=== PATIENT | male | born 1955 | race African-American/Black ===

== ENCOUNTER 2017-08-06 00:44 | Inpatient (IN) | payer OTHER ==
[~2017-08-06] VITALS: Ht 170.2 cm; Wt 80.2 kg
[~2017-08-06 00:44] MED LIST: ASPI-556 PO; GLIP5TAB11 PO; METF500T6 PO; PIOG30TA10 PO
[2017-08-06 01:07] LABS: GLUCOSE,POINT OF CARE 154 MG/DL (70-110)
[2017-08-06 01:40] LABS: BASOPHILS % (AUTO) 1.3 % (0.0-2.0); EOSINOPHILS % (AUTO) 1.5 % (1.0-6.0); HEMOGLOBIN 11.5 g/dL (13.5-17.5); LYMPHOCYTES # (AUTO) 1.6 K/uL (1.0-4.8); LYMPHOCYTES % (AUTO) 19.9 % (22.0-44.0); MEAN CORPUSCULAR HEMOGLOBIN 31.7 pg (26.0-34.0); MEAN CORPUSCULAR HGB CONC 33.9 G/dL (31.0-37.0); MEAN CORPUSCULAR VOLUME 93 fL (80-100); MONOCYTES # (AUTO) 0.8 K/uL (0.1-1.0); MONOCYTES % (AUTO) 9.8 % (2.0-9.0); NEUTROPHILS # (AUTO) 5.4 K/uL (1.8-7.7); NEUTROPHILS % (AUTO) 67.5 % (40.0-70.0); PLATELET COUNT (AUTO) 177 K/uL (150-450); RED BLOOD CELL COUNT(AUTO) 3.64 MIL/uL (4.50-5.90); RED CELL DISTRIBUTION WIDTH 13.7 % (11.5-14.5)
[2017-08-06 01:50] LABS: ANION GAP 7 mmol/L (8-16); CALCIUM, TOTAL 8.4 mg/dL (8.8-10.5); CARBON DIOXIDE 28 mmol/L (22-29); CHLORIDE 104 mmol/L (98-107); CREATININE 1.45 mg/dL (0.60-1.30); GLOMERULAR FILTR. RATE CALC 60 mL/min (>60); GLUCOSE,RANDOM 157 mg/dL (70-110); POTASSIUM 3.7 mmol/L (3.5-5.1); SODIUM SERUM 139 mmol/L (136-145); UREA NITROGEN, BLOOD 18 mg/dL (7-18)
[2017-08-06 01:51] LABS: PROTHROMBIN TIME 10.2 SEC (9.4-11.6)
[2017-08-06 01:57] LABS: SALICYLATE < 2.8 mg/dL (2.8-20.0)
[2017-08-06 01:58] LABS: AMMONIA < 10 umol/L (11-32); TROPONIN I < 0.02 ng/mL (0.00-0.05)
[2017-08-06 02:16] LABS: ACETAMINOPHEN < 2 mcg/mL (10-30); ALANINE AMINOTRANSFERASE 16 U/L (12-78); ALBUMIN 3.2 g/dL (3.4-5.0); ALKALINE PHOSPHATASE 88 U/L (46-116); ASPARTATE AMINOTRANSFERASE 14 U/L (15-37); BILIRUBIN,TOTAL 0.7 mg/dL (0.1-1.0); CREATINE KINASE MB 2.2 ng/mL (0-5); CREATINE KINASE, TOTAL 155 U/L (39-308); TOTAL PROTEIN, SERUM 7.2 g/dL (6.4-8.2)
[2017-08-06 02:42] LABS: APPEARANCE,URINE CLEAR (CLEAR); BILIRUBIN,URINE NEGATIVE (NEGATIVE); GLUCOSE, URINE (UA) 100 mg/dL (NEGATIVE); KETONES,URINE TRACE mg/dL (NEGATIVE); LEUKOCYTE ESTERASE ,URINE NEGATIVE (NEGATIVE); NITRATE,URINE NEGATIVE (NEGATIVE); OCCULT BLOOD,URINE TRACE (NEGATIVE); PROTEIN,URINE SEE CONFIRM (NEGATIVE)
[2017-08-06 02:49] LABS: AMPHET/METH SCREEN,URINE NEGATIVE (NEGATIVE); BARBITURATE SCREEN, URINE NEGATIVE (NEGATIVE); BENZODIAZEPINES SCREEN,URINE POSITIVE (NEGATIVE); CANNABINOID SCREEN,URINE NEGATIVE (NEGATIVE); COCAINE SCREEN,URINE NEGATIVE (NEGATIVE); METHADONE SCREEN, URINE NEGATIVE (NEGATIVE); OPIATE SCREEN,URINE NEGATIVE (NEGATIVE); PHENCYCLIDINE SCREEN,URINE NEGATIVE (NEGATIVE)
[2017-08-06 02:51] LABS: BACTERIA,URINE None Seen /HPF (None Seen); SULFOSALICYLIC ACID,URINE 2+ (Negative); WBC,URINE None Seen /HPF (0-5)
[2017-08-06] MEDS ORDERED: ONDANSETRON HCL 4 MG/2 ML VIAL IVP PRN ×2 (03:30→10:00)
[2017-08-06] MEDS ORDERED: 0.9% SODIUM CHLORIDE 10 ML SYRINGE IVP PRN (03:30)
[2017-08-06] MEDS ORDERED: ACETAMINOPHEN 325 MG TABLET PO PRN ×2 (03:30→10:00)
[2017-08-06] MEDS ORDERED: ASPIRIN 325 MG TABLET PO ONE (03:45)
[2017-08-06 05:11] VITALS: BP 149/84
[2017-08-06] MEDS ORDERED: PNEUMOCOCCAL VACCINE POLYVALENT 0.5 ML VIAL [PPSV23] IM ONE (06:00)
[2017-08-06] MEDS ORDERED: LISI-622 PO (06:37)
[2017-08-06] MEDS ORDERED: LISI5TAB PO (06:37)
[2017-08-06] MEDS ORDERED: INSU100I26 SQ (06:37)
[2017-08-06 06:58] LABS: GLUCOMETER DEV NAME(LOC) 5S 2Q; GLUCOSE,POINT OF CARE 129 MG/DL (70-110)
[2017-08-06 07:36] VITALS: BP 148/65
[2017-08-06] MEDS ORDERED: MAGNESIUM HYDROXIDE SUSPENSION 30 ML UDCUP PO PRN (10:00)
[2017-08-06] MEDS ORDERED: MORPHINE SULFATE 4 MG/ML SYRINGE IVP PRN (10:00)
[2017-08-06] MEDS ORDERED: ZOLPIDEM TARTRATE 5 MG TABLET PO PRN (10:00)
[2017-08-06] MEDS ORDERED: HYDROCODONE/ACETAMINOPHEN 5-325 MG TABLET PO PRN (10:00)
[2017-08-06] MEDS ORDERED: DEXTROSE 50%-WATER 25 GM/50 ML SYRINGE IVP PRN (10:00)
[2017-08-06] MEDS ORDERED: BISACODYL 10 MG RECTAL RECTAL SUPPOSITORY PR PRN (10:00)
[2017-08-06] MEDS ORDERED: MAGNESIUM SULFATE 2 GM, MVI, ADULT NO.1 WITH VIT K 10 ML, THIAMINE HCL 100 MG, FOLIC AC... IV ONE ×5 (10:15)
[2017-08-06 11:59] VITALS: BP 142/83
[2017-08-06 15:28] VITALS: BP 139/79
[2017-08-06] MEDS: HEPARIN SODIUM,PORCINE 5,000 UNITS/ML VIAL SQ SCH (18:42)
[2017-08-06] MEDS: DOCUSATE SODIUM 100 MG CAPSULE PO SCH (20:07)
[2017-08-06 20:24] VITALS: BP 145/81
[2017-08-06 23:51] VITALS: BP 116/72
[2017-08-07] MEDS: HEPARIN SODIUM,PORCINE 5,000 UNITS/ML VIAL SQ SCH ×3 (00:36→15:50)
[2017-08-07 03:22] LABS: GLUCOMETER DEV NAME(LOC) 5S 1M; GLUCOSE,POINT OF CARE 109 MG/DL (70-110)
[2017-08-07 03:22] LABS: GLUCOMETER DEV NAME(LOC) 5S 1M; GLUCOSE,POINT OF CARE 117 MG/DL (70-110)
[2017-08-07 03:23] LABS: GLUCOMETER DEV NAME(LOC) 5S 1M; GLUCOSE,POINT OF CARE 91 MG/DL (70-110)
[2017-08-07 04:48] VITALS: BP 137/92
[2017-08-07 07:36] VITALS: BP 123/67
[2017-08-07] MEDS: PANTOPRAZOLE SODIUM 40 MG DR TABLET PO SCH (08:28)
[2017-08-07] MEDS: ASPIRIN 81 MG EC TABLET PO SCH (08:28)
[2017-08-07] MEDS: LISINOPRIL 5 MG TABLET PO SCH (08:28)
[2017-08-07] MEDS: DOCUSATE SODIUM 100 MG CAPSULE PO SCH ×2 (08:28→21:23)
[2017-08-07 09:08] LABS: GLUCOMETER DEV NAME(LOC) 5S 1M; GLUCOSE,POINT OF CARE 91 MG/DL (70-110)
[2017-08-07 11:07] VITALS: BP 129/75
[2017-08-07] MEDS: INSULIN LISPRO 100 UNITS/ML SQ PRN ×3 (12:00→21:34)
[2017-08-07 12:07] LABS: GLUCOMETER DEV NAME(LOC) 5S 2Q; GLUCOSE,POINT OF CARE 189 MG/DL (70-110)
[2017-08-07 14:42] VITALS: BP 107/71
[2017-08-07 19:28] VITALS: BP 125/63
[2017-08-07 23:38] VITALS: BP 138/77
[2017-08-08] MEDS: HEPARIN SODIUM,PORCINE 5,000 UNITS/ML VIAL SQ SCH ×2 (00:21→09:02)
[2017-08-08 04:59] VITALS: BP 141/94
[2017-08-08] MEDS: INSULIN LISPRO 100 UNITS/ML SQ PRN ×2 (05:57→12:02)
[2017-08-08 06:58] LABS: GLUCOMETER DEV NAME(LOC) 5S 2Q; GLUCOSE,POINT OF CARE 237 MG/DL (70-110)
[2017-08-08 07:40] VITALS: BP 124/81
[2017-08-08] MEDS: DOCUSATE SODIUM 100 MG CAPSULE PO SCH (09:00)
[2017-08-08] MEDS: ASPIRIN 81 MG EC TABLET PO SCH (09:02)
[2017-08-08] MEDS: LISINOPRIL 5 MG TABLET PO SCH (09:02)
[2017-08-08] MEDS: PANTOPRAZOLE SODIUM 40 MG DR TABLET PO SCH (09:02)
[2017-08-08 11:43] VITALS: BP 152/89
[2017-08-08 16:10] VITALS: BP 147/89
[2017-08-09 13:23] LABS: GLUCOMETER DEV NAME(LOC) 5S 2Q; GLUCOSE,POINT OF CARE 237 MG/DL (70-110)
[2017-08-10 20:39] LABS: GLUCOMETER DEV NAME(LOC) 5S 1M; GLUCOSE,POINT OF CARE 256 MG/DL (70-110)
[2017-08-10 20:39] LABS: GLUCOMETER DEV NAME(LOC) 5S 1M; GLUCOSE,POINT OF CARE 205 MG/DL (70-110)
== END 2017-08-08 17:20 | disposition home or self-care (01) | DRG 52 ==
LOC: EMS 00:45 → 5S 03:41
PROVIDERS: ADMIT Internal Medicine; ATTEND Internal Medicine
DX: G93.40 Encephalopathy, unspecified (principal); N17.9 Acute kidney failure, unspecified; E11.22 Type 2 diabetes mellitus with diabetic chronic kidney disease; I12.9 Hypertensive chronic kidney disease with stage 1 through stage 4 chronic kidney disease, or unspecified chronic kidney disease; F23 Brief psychotic disorder; R26.2 Difficulty in walking, not elsewhere classified; D64.9 Anemia, unspecified; N18.9 Chronic kidney disease, unspecified; Z28.21 Immunization not carried out because of patient refusal; Z79.84 Long term (current) use of oral hypoglycemic drugs; Z79.82 Long term (current) use of aspirin
CPT/HCPCS: 51702; 70450; 70551; 76700; 87040; 93005; 97161; 97165; 99285; G0480; G0481; J1644; J3411; J3475; J3490; J7030

== ENCOUNTER 2023-10-16 13:42 | Emergency (ER) | payer OTHER ==
[~2023-10-16] VITALS: Ht 167.6 cm; Wt 76.4 kg
[~2023-10-16 13:42] MED LIST changes: -GLIP5TAB11 PO; +GLIP5TAB15 PO; +INSU100I26 SQ; +LISI5TAB PO; +METF-1211 PO; -METF500T6 PO; -PIOG30TA10 PO
[2023-10-16 13:51] VITALS: TEMP 98.4
[2023-10-16] MEDS ORDERED: LISI5TAB21 PO (13:54)
[2023-10-16] MEDS ORDERED: LISI10TA24 PO (13:54)
[2023-10-16] MEDS ORDERED: FLAS1KIT3 (13:54)
[2023-10-16] MEDS ORDERED: DULA1.5P SQ (13:54)
[2023-10-16] MEDS ORDERED: TAMS0.4C94 PO (13:54)
[2023-10-16] MEDS ORDERED: NEED-113 SQ (13:54)
[2023-10-16] MEDS ORDERED: EMPA1TAB17 PO (13:54)
[2023-10-16] MEDS: SODIUM CHLORIDE 0.9% 1,000 ML IV ONE (14:57)
[2023-10-16] MEDS: ONDANSETRON HCL 4 MG/2 ML VIAL IVP ONE (14:57)
[2023-10-16 16:02] VITALS: BP 140/82; PULSE 94; RESP 16
[2023-10-16 16:02] LABS: EOSINOPHILS % (AUTO) 0.9 % (1.0-6.0); HEMATOCRIT 37.7 % (41-53); HEMOGLOBIN 12.1 g/dL (13.5-17.5); LYMPHOCYTES # (AUTO) 1.5 K/uL (1.0-4.8); LYMPHOCYTES % (AUTO) 19.4 % (22.0-44.0); MEAN CORPUSCULAR HEMOGLOBIN 31.7 pg (26.0-34.0); MEAN CORPUSCULAR VOLUME 99 fL (80-100); MONOCYTES # (AUTO) 0.9 K/uL (0.1-1.0); MONOCYTES % (AUTO) 11.5 % (2.0-9.0); NEUTROPHILS # (AUTO) 5.2 K/uL (1.8-7.7); NEUTROPHILS % (AUTO) 67.2 % (40.0-70.0); RED BLOOD CELL COUNT(AUTO) 3.81 MIL/uL (4.50-5.90); RED CELL DISTRIBUTION WIDTH 14.4 % (11.5-14.5); WHITE BLOOD COUNT (AUTO) 7.7 K/uL (4.5-11.0)
[2023-10-16 16:09] LABS: CALCIUM, TOTAL 8.4 mg/dL (8.8-10.5); CREATININE 1.5 mg/dL (0.60-1.30)
[2023-10-16 16:14] LABS: ALBUMIN 2.8 g/dL (3.4-5.0); BILIRUBIN,TOTAL 0.7 mg/dL (0.1-1.0); TOTAL PROTEIN, SERUM 6.8 g/dL (6.4-8.2)
[2023-10-16 16:23] LABS: PLATELET COUNT (AUTO) 111 K/uL (150-450)
[2023-10-16 16:39] LABS: TROPONIN I-HIGH SENSITIVITY 9 ng/L (<76)
[2023-10-16] MEDS ORDERED: ONDA-104 PO (17:08)
== END 2023-10-16 17:37 | disposition home or self-care (01) ==
LOC: EMS 13:46
DX: R11.2 Nausea with vomiting, unspecified (principal); E11.9 Type 2 diabetes mellitus without complications; I10 Essential (primary) hypertension
CPT/HCPCS: 99285; 96374; 76700; 71045; 96361; 80053; 83690; 84484; 85025; 36415; 82962; 93005; J2405; J7030